=== PATIENT | male | born 1990 | race Caucasian/White ===

== ENCOUNTER 2022-04-24 11:14 | Inpatient (IN) | payer BC ==
[~2022-04-24] VITALS: Ht 175.3 cm; Wt 123.9 kg
[2022-04-24] MEDS ORDERED: K-TAB10 PO (14:29)
[2022-04-24] MEDS ORDERED: MAG-OX 400400 MG/TAB PO (14:32)
[2022-04-24] MEDS ORDERED: PROTONIX 40MG T40 MG PO (14:34)
[2022-04-24] MEDS ORDERED: SENNA-LAX8.6 MG PO (14:34)
[2022-04-24] MEDS ORDERED: CONSTULOSE 20G/30ML PO (14:35)
[2022-04-24] MEDS ORDERED: NORVASC 10MG10 MG PO (14:35)
[2022-04-24] MEDS ORDERED: ZOFRAN ODT4 MG PO (14:36)
[2022-04-24] MEDS ORDERED: ATROVENT I0.2 MG/1 M IH (14:37)
[2022-04-24] MEDS ORDERED: PULMICORT0.5 MG/2 M IH (14:38)
[2022-04-24] MEDS ORDERED: MELATIN 3 MG-11 TAB PO (14:38)
[2022-04-24] MEDS ORDERED: ROBAXIN 50500 MG/TAB PO (14:38)
[2022-04-24] MEDS ORDERED: TYLENOL 325MG325 MG PO (14:39)
[2022-04-24] MEDS ORDERED: GAS RELIEF 8080 MG PO (14:40)
[2022-04-24 16:04] VITALS: BP 127/64; PULSE 94
--- NOTE | 2022-04-25 03:25 | NUR ---
Pt has had an uneventful shift this far, resting quietly in bed with TV on. Full body assessment and medication administration completed without difficulty. Pt has had no complaints of pain this evening. Colostomy bag has been empyted intermittently this shift. Call light within reach, will continue to monitor.
[2022-04-25 05:08] VITALS: BP 135/69; PULSE 79; TEMP 97.6
[2022-04-25 07:15] LABS: MEAN CELL VOLUME 93 fl (80.0-100.0); MEAN CORPUSCULAR HGB CONC 31 g/dl (33.0-37.0); MEAN PLATELET VOLUME 11.2 fl (7.4-10.4); PLATELET COUNT 399 K/mm3 (130-400); RED BLOOD COUNT 3.12 M/mm3 (4.20-5.60); REDCELL DISTRIBUTION WIDTH-CV 13.6 % (11.5-14.5)
[2022-04-25 07:20] LABS: MEAN CORPUSCULAR HEMOGLOBIN 29 pg (27-31)
[2022-04-25 07:25] LABS: ALBUMIN 2.4 gm/dL (3.5-5.0); BILIRUBIN,TOTAL 0.3 mg/dL (0.2-1.2); CALCIUM 9.2 mg/dL (8.4-10.2); CREATININE, serum 1.38 mg/dL (0.72-1.25); MAGNESIUM 1.8 mg/dL (1.6-2.6); POTASSIUM 4.7 mmol/L (3.5-4.5); TOTAL PROTEIN 8.3 gm/dL (6.2-8.1)
[2022-04-25 10:12] LABS: BAND 4 % (0-10); EOSINOPHIL 5 % (0-4); HYPOCHROMIA 2+; LYMPHOCYTE 13 % (20.0-51.0); METAMYELOCYTE 2 % (0-0); MYELOCYTE 2 % (0-0); NEUTROPHILS 67 % (42.0-75.2); PLATELET ESTIMATE NORMAL (NORMAL)
--- NOTE | 2022-04-25 10:19 | NUR ---
NEW ADMISSION. PATIENT DOING WELL THIS MORNING. RIGHT SIDE COLOSTOMY PRESENT, DRAINING WELL, TEACHING GIVEN TO PATIENT ON HOW TO DRAIN BAG. MIDLINE INCISION WITH GAUZE DRESSING INTACT. ABDOMINAL WOUNDS FROM PRIOR SURGERIES HEALING WELL. NO S/S OF INFECTION. CONTINENT OF BLADDER, USES URINAL. PEG TUBE IN PLACE AND CLAMPED. PATIENT REFUSES FLUSHES TO TUBE AT THIS TIME. TAKES MEDS WHOLE WITHOUT ISSUE. FAIR APPETITE AT MEAL TIMES. A&O X4, PLEASANT. PARTICIPATED IN THERAPY TODAY WITHOUT ISSUE. VITALS WNL.
--- NOTE | 2022-04-25 16:21 | NUR ---
Aoc Plans Intelligence Officer Chief met with patient to complete initial intake as patient is new to [facility]. Patient reports Dr. Gal Ball is his primary care doctor and that he obtains medications from [facility]. Patient does not normally use any DME and is normally independent with ADLS. Patient reports his parents, Conrad (ph#[phone]) and Haylee (ph#[phone]) are his DPOA-HC. Patient states he is feeling worn out from therapy today. SW will continue to follow for discharge needs.
[2022-04-25 18:00] VITALS: BP 128/65; PULSE 84; TEMP 97.6
[2022-04-26 06:06] VITALS: BP 129/72; PULSE 87; TEMP 97.6
--- NOTE | 2022-04-26 07:28 | NUR ---
Shift report received from film processing shift supervisor RN. Pt. sleeping supine in bed. Call light is within his reach
--- NOTE | 2022-04-26 08:39 | NUR ---
ASSESSMENT DONE. PATIENT ALERTX4 WITH NO ISSUE WITH MEMORY. PATIENT COMPLAIN OF PAIN 5/10 ON ABDOMINAL AREA. PAIN MEDICATION WAS GIVEN ORDER. PATIENT IS 2 PERSON ASSISTANCE. pATIENT HAS A COLOSTOMY ON RIGHT SIDE OF ABDOMINA. COMPLAIN OF GAS PAIN. GAS MEDICATION WAS GIVEN ORDER. ABLE TO TAKE ALL MEDICATION WITH NO ISSUE EXCEPT THE POTASSIUM. HEPRIN SUBQ SHOT WAS GIVEN ON LEFT UPPER ARM. [facility]. PATIENT IS AWARE TO CALL IF THERE IS ANY CONCERN OR QUESTION
--- NOTE | 2022-04-26 09:39 | NUR ---
Pt off unit to work with PT/OT
[2022-04-26 11:08] LABS: PATHOLOGY DIFF REVIEW OK
--- NOTE | 2022-04-26 15:17 | NUR ---
cement storage worker met with patient to complete intake and discuss discharge plan. Patient reports that prior to being admitted to [facility], he was living at home with his Kirti ([phone]). Patient was fully independent with his ADL's and did not utilize any DME to assist with mobility. Patient reports he is now needing a walker to assist. Patient reports that he did not have any home oxygen needs, however he is currenly on 1L of [place] oxygen. PCP is Dr. Lange and he utilizes [facility] term [facility] and [facility] for detention medications. [facility] States he does have a DPOA-HC established listing his as his primary agent and his oldest son Peter Westfall as his seconday agent.
[2022-04-26 17:39] VITALS: BP 120/74; PULSE 84; TEMP 98.6
[2022-04-27 05:09] VITALS: BP 120/72; PULSE 82; TEMP 98.2
--- NOTE | 2022-04-27 06:11 | NUR ---
Pt had an uneventful shift, rested quietly for most of it. Pt had no complaints of pain. Assessment and medication completed without difficulty. All other needs met at this time, call light within reach.
[2022-04-27 07:34] LABS: MEAN CELL VOLUME 92 fl (80.0-100.0); MEAN CORPUSCULAR HGB CONC 31 g/dl (33.0-37.0); MEAN PLATELET VOLUME 11.2 fl (7.4-10.4); PLATELET COUNT 485 K/mm3 (130-400); RED BLOOD COUNT 3.46 M/mm3 (4.20-5.60); REDCELL DISTRIBUTION WIDTH-CV 13.8 % (11.5-14.5)
[2022-04-27 07:46] LABS: HEMATOCRIT 31.8 % (42.0-52.0); HEMOGLOBIN 9.8 g/dl (13.5-18.0); MEAN CORPUSCULAR HEMOGLOBIN 28 pg (27-31)
[2022-04-27 07:54] LABS: CALCIUM 9.7 mg/dL (8.4-10.2); CREATININE, serum 1.56 mg/dL (0.72-1.25); POTASSIUM 4.3 mmol/L (3.5-4.5)
--- NOTE | 2022-04-27 08:25 | NUR ---
Ivon Hospitalist PA updated on AM labs, increased output from ostomy, decreased urine output and current oral intake. No further orders at this time. Cares being provided by Renetta Sanchez RN, with supervision of the RN as preceptor.
[2022-04-27 08:39] LABS: EOSINOPHIL 2 % (0-4); LYMPHOCYTE 15 % (20.0-51.0); NEUTROPHILS 77 % (42.0-75.2)
[2022-04-27 08:40] LABS: HYPOCHROMIA 3+; PLATELET ESTIMATE INCREASED (NORMAL)
[2022-04-27 08:41] LABS: BAND 2 % (0-10); METAMYELOCYTE 1 % (0-0)
--- NOTE | 2022-04-27 09:11 | NUR ---
IV 20G ON LEFT HAND WAS PLACE IN FOR IV FLUID. PATIENT TOLERATED WELL. IV STARTED AT 805AM.STOOL CULURE WAS SENT DOWN TO LAB. SENNA TAB WAS PLACE ON HOLD DUE TO DIARRHEA
--- NOTE | 2022-04-27 11:06 | NUR ---
ASSESSMENT DONE ORDER. PATIENT IS ALERTX 4 BUT VERY TIRED AND WITHDRAW. PATIENT STATED THAT HE JUST WANT TO SLEEP ALL DAY TODAY DUE TO PT YESTERDAY. ONLY ATE ABOUT 10% OF HIS BREAKFAST BUT DRANK HIS OJ.PATIENT STARTED IV FLUID TODAY AND URINATED ABOUT 300 CC OF SHERLY TEA COLOR. PATIENT DID INFORM THAT HIS STOMACH IS SLIGHT IN MORE PAIN THAN BEFORE BUT NOT BAD THAT HE NEED PAIN MEDICATION. I ALSO SPOKE WITH ANKUSH MCDONALD ABOUT PATIENTINFORM THAT HE WILL BE GETTING ANOTHER BLOOD DRAWN THIS AFTER FOR LAB DUE TO ELEVATED LAPS THIS AM. PATIENT HAS BEEN EMPTYING ABOUT 400 OF BOWEL MOVEMENT(LIQUID) EVERY 1 HOURS SINCE MY SHIFT AT 630AM. G1 PANEL WAS SENT TO LAB ORDER
--- NOTE | 2022-04-27 13:45 | NUR ---
CHANGE DRESSING ON PATIENT ABOMINAL AREA. NOTICES THAT HIS STOMY HAS SLOUGH NOTED ON TOP RIGHT CORNER. STOMY RED AND IN GOOD SHAPE. STILL DRAINING MILTON FLUIDS. 800ML OF DM CAME OUT AT 2 PM. 230 PM PATIENT HAD ANOTHER BM OF 300ML MIL[place] COLOR OF FLUID. CHANGE STOMY DRESSING WITH WARM WATER. CLEARN WITH TOWEL. PAT DRY AND APPLY NEW WAFFER AND BAG.PATIENT CONTINUE TO HAVE ABDOMINAL PAIN EVEN THOUGH 15 MG OF PAIN MEDCATION WAS GIVEN. CALLED DR JOHNSON REGARDING A CONSUL ON PATIENT BECAUSEOF DRAINING FROM ABDOMINAL INCISION, INCREASING WBC,AND ABD PAIN, BLOATING. 415PM ANOTHER 300 ML OF MILTON FLUID (BOWEL MOVEMENT) CAME OUT. PATIENT ON THE LEFT SIDE FOR COMFORT. CALL LIGHT IN REACH. INSTRUCTED TO CALL FOR ANOTHER CONCERN OR QUESTION
[2022-04-27 13:48] VITALS: TEMP 98.1
--- NOTE | 2022-04-27 13:49 | NUR ---
Pain complaint of pain in abdominal area 7/10 ache. patient also stated that he feels funny doesn't know how to described it. Ask for the basin just incase he vomited. offer n/v medication but refused. Ask for pain medication 15mg of oxy was given as order. will follow up
--- NOTE | 2022-04-27 15:00 | NUR ---
ANKUSH Del Valle notified of dressing change to abdomen. Incisions inspected by Dr. Kinney and Ivon. Purulent drainage noted to incisions, and around PEG insertion site. Orders received to flush PEG tube daily. Wound culture of distal open area on midline incision obtained.
[2022-04-27 15:06] LABS: CALCIUM 9.4 mg/dL (8.4-10.2); CREATININE, serum 1.43 mg/dL (0.72-1.25); POTASSIUM 4.6 mmol/L (3.5-4.5)
--- NOTE | 2022-04-27 15:29 | NUR ---
ANKUSH Del Valle notified of critical labs at 1513. Orders received. Patient updated on new orders and surgical consult.
[2022-04-27 16:15] VITALS: BP 123/57; PULSE 89; TEMP 98
--- NOTE | 2022-04-27 18:35 | NUR ---
Dr Payne rounds on patient. Updated on dressing change and culture sent. No new orders at this time.
--- NOTE | 2022-04-27 19:14 | NUR ---
colostomy bag that I place on 3 hours ago came off. I redid it with extra bill, educated the patient that not to mess with it. He ask if we can come every 1 hours to help him dump his BM.I pass it on to the next nurse. I also showed her how to change the bag. Patient stated that he feels slightly better but still feel that he need to release air. I dump out colostomy while I was there in room at 7pm with night nurse. 150 cc of mead BM came out of the colostomy bag
--- NOTE | 2022-04-27 21:14 | NUR ---
ASSESSMENT COMPLETE. PT. LYING IN BED. A&O. NO COMPLAINTS OF PAIN. COLOSTOMY BAG TO RLQ INTACT AND NOT LEAKING. PEG TUBE IN PLACE. INT TO LEFT HAND. CALL LIGHT IN REACH. NO FURTHER NEEDS AT THIS TIME.
[2022-04-28 05:17] VITALS: BP 125/70; PULSE 82; TEMP 97.7
[2022-04-28 07:06] LABS: MEAN CELL VOLUME 91 fl (80.0-100.0); MEAN CORPUSCULAR HGB CONC 32 g/dl (33.0-37.0); MEAN PLATELET VOLUME 11.4 fl (7.4-10.4); PLATELET COUNT 539 K/mm3 (130-400); REDCELL DISTRIBUTION WIDTH-CV 13.9 % (11.5-14.5)
[2022-04-28 07:17] LABS: HEMOGLOBIN 9.8 g/dl (13.5-18.0); MEAN CORPUSCULAR HEMOGLOBIN 29 pg (27-31)
[2022-04-28 07:18] LABS: CALCIUM 9.7 mg/dL (8.4-10.2); CREATININE, serum 1.77 mg/dL (0.72-1.25); POTASSIUM 4.2 mmol/L (3.5-4.5)
[2022-04-28 08:34] LABS: BAND 10 % (0-10); LYMPHOCYTE 15 % (20.0-51.0); METAMYELOCYTE 7 % (0-0); MYELOCYTE 1 % (0-0); NEUTROPHILS 63 % (42.0-75.2); PLATELET ESTIMATE INCREASED (NORMAL)
--- NOTE | 2022-04-28 11:01 | NUR ---
PATIENT DOING WELL THIS SHIFT. VITALS WNL, AFEBRILE. NOTED INCREASE IN WBC REPORTED TO HOSPITALIST. ORDERS RECIEVED. PATIENT DOES NOT HAVE ANY SIGNS OF INFECTION OR SEPSIS AT THIS TIME. ONLY COMPLAINT IS FATIGUE FROM THERAPY SESSIONS. PARTICIPATED WITH PT/OT WITHOUT ISSUE. COMPLAINS OF MILD CRAMPING IN ABDOMEN THAT HE SAYS IS INTERMITTENT. MODERATE TO HIGH OUTPUT FROM COLOSTOMY, HAS TO BE DRAINED ABOUT EVERY HOUR. MOSTLY LIQUID IN CONSISTENCY. 500ML FREE WATER RESTRICTION FOLLOWED. A&O X4 PLEASANT. CONT OF BLADDER. ABDOMINAL INCISIONS CLEAN DRY AND INTACT.
--- NOTE | 2022-04-28 13:53 | NUR ---
Materials Development Engineer checked in with patient who is on a medical hold at this time. Patient had no questions or concerns at this time and was going to try to eat his lunch soon.
--- NOTE | 2022-04-28 20:38 | NUR ---
Report received on pt from day shift nurse. Assessment completed without difficulty. Colotostomy bag emptied by this nurse at 1915. Later in the shift at approximately 2030 RT went into the pts room, RT notified this nurse that the pt was requesting that his colostomy bag be emptied again. RT stated that the pt told her that "my nurse hasn't even been in the room since she got here". This nurse entered the room along with a PCT and assisted in emptying his colostomy bag. This nurse inquired about him saying that I had not entered the room; this was asked due to the pts history of alcohol abuse and the fear that there were neurological issues arising. Pt stated that "no, that's not what I meant, she (RT) misunderstood what I meant.". This nurse deteremined that pt was A&Ox4 and that secondary assessment was normal. All other needs met at this time, will continue to monitor.
[2022-04-29 05:23] VITALS: BP 123/66; PULSE 99; TEMP 97.3
--- NOTE | 2022-04-29 06:17 | NUR ---
Pt has been resting in for a majority of the shift. Pt has had no complaints of pain. Assessment and medication administration completed without difficuly. This nurse educated the pt on the importance of being able to manage and empty his own colostomy bag. Pt became mildly defensive in regards to the subject matter. All other needs met at this time, call light within reach.
[2022-04-29 06:51] LABS: MEAN CELL VOLUME 90 fl (80.0-100.0); MEAN CORPUSCULAR HGB CONC 33 g/dl (33.0-37.0); MEAN PLATELET VOLUME 11.1 fl (7.4-10.4); PLATELET COUNT 470 K/mm3 (130-400); RED BLOOD COUNT 3.01 M/mm3 (4.20-5.60); REDCELL DISTRIBUTION WIDTH-CV 13.9 % (11.5-14.5)
[2022-04-29 06:54] LABS: HEMOGLOBIN 8.8 g/dl (13.5-18.0); MEAN CORPUSCULAR HEMOGLOBIN 29 pg (27-31)
[2022-04-29 07:18] LABS: ALBUMIN 2.5 gm/dL (3.5-5.0); BILIRUBIN,TOTAL 0.3 mg/dL (0.2-1.2); CALCIUM 9.3 mg/dL (8.4-10.2); CREATININE, serum 2.68 mg/dL (0.72-1.25); POTASSIUM 3.5 mmol/L (3.5-4.5); TOTAL PROTEIN 7.9 gm/dL (6.2-8.1)
--- NOTE | 2022-04-29 07:48 | NUR ---
REPORTED CRITICAL LAB TO DR. MERCADO
[2022-04-29 08:26] LABS: BAND 15 % (0-10); EOSINOPHIL 8 % (0-4); LYMPHOCYTE 7 % (20.0-51.0); METAMYELOCYTE 4 % (0-0); MYELOCYTE 2 % (0-0); NEUTROPHILS 58 % (42.0-75.2)
[2022-04-29 08:27] LABS: PLATELET ESTIMATE NORMAL (NORMAL)
--- NOTE | 2022-04-29 10:37 | NUR ---
PATIENT ALERT AND ORIENTED X3. VSS. PATIENT DENIES PAIN. DRESSING ON MIDLINE CHANGED. OSTOMY APPLIANCE EMPTIED WITH 175ML OUT. IV TO LEFT HAND FLUSHES WELL WITH LR RUNNING AT 75ML/HOUR. PEG TUBE FLUSHED. ASSESSMENT PERFORMED. AM MEDS ADMINISTERED. PATIENT IN BED WITH CALL LIGHT NEAR.
[2022-04-29 16:58] VITALS: BP 117/54; PULSE 77; TEMP 98.1
[2022-04-30 05:00] VITALS: BP 132/66; BP 137/49; PULSE 68; PULSE 88; TEMP 97.8; TEMP 98.3
--- NOTE | 2022-04-30 08:52 | NUR ---
PATIENT WENT FOR HIS PROCEDURE FOR EGD. PER NURSE WILL BE ABOUT 30 MIN. PATIENT COLOSTOMY BAG WAS CHANGE BEFORE THE PROCEDURE.
[2022-04-30 08:56] LABS: MEAN CELL VOLUME 89 fl (80.0-100.0); MEAN CORPUSCULAR HGB CONC 32 g/dl (33.0-37.0); MEAN PLATELET VOLUME 11.3 fl (7.4-10.4); PLATELET COUNT 385 K/mm3 (130-400); RED BLOOD COUNT 3.09 M/mm3 (4.20-5.60); REDCELL DISTRIBUTION WIDTH-CV 14.1 % (11.5-14.5)
[2022-04-30 08:57] LABS: HEMATOCRIT 27.4 % (42.0-52.0); HEMOGLOBIN 8.8 g/dl (13.5-18.0); MEAN CORPUSCULAR HEMOGLOBIN 28 pg (27-31)
--- NOTE | 2022-04-30 09:30 | NUR ---
RECEIVED A PHONE CALL FROM NURSE AT [facility]. SHE STATED THAT THEY DID 3 BIOPSY AND PATIETN DID FINE. ALERT X4. BLOODPRESSURE RANGING FROM 130-140\60-70. HEART RATE 70ISH. THERE IS SMALL AMOUNT OF CANDITISIS NOTED. DR MERCADO WAS MADE AWARE. PATIENT WILL BE TRANFER BACK TO HIS ROOM SHORTLY
[2022-04-30 09:45] VITALS: BP 132/59; PULSE 76; TEMP 97.9
[2022-04-30 10:10] LABS: ALBUMIN 2.2 gm/dL (3.5-5.0); BILIRUBIN,TOTAL 0.3 mg/dL (0.2-1.2); CALCIUM 8.4 mg/dL (8.4-10.2); CREATININE, serum 2.26 mg/dL (0.72-1.25); POTASSIUM 3.3 mmol/L (3.5-4.5); TOTAL PROTEIN 6.9 gm/dL (6.2-8.1)
--- NOTE | 2022-04-30 10:21 | NUR ---
ASSESSMENT DONE ORDER. PATIENT ALERTX4. IN BED MOST OF THE DAY EXCEPT FOR PT/OT. PAIN HAS BEEN GOOD. STARTED ON ZOSYN MEDICATION. PATIENT WILL HAVE A EDG PROCEDURE TODAY AT 9AM. COLOSTOMY BAG WAS CHANGE BY NURSE. APPETITE HAS BEEN POOR TO FAIR. EDUCATED PATIENT TO REPOSTION EVERY 2 -3 HOURS
[2022-04-30 11:48] LABS: EOSINOPHIL 10 % (0-4); LYMPHOCYTE 15 % (20.0-51.0); NEUTROPHILS 68 % (42.0-75.2)
[2022-04-30 11:49] LABS: HYPOCHROMIA 1+; PLATELET ESTIMATE NORMAL (NORMAL)
--- NOTE | 2022-04-30 15:26 | NUR ---
Gymnastics Coach met with patient and provided copy of team conference notes. SW advised discharge date has not been set at this time and patient stated he figured that would be the case. Patient advised today has been better and his parents visited him today. Patient stated he would share the team conference notes with his mom, who would enjoy reading the updates.
[2022-04-30 17:04] VITALS: BP 132/58; PULSE 78; TEMP 98.1
--- NOTE | 2022-04-30 20:46 | NUR ---
PT RESTING IN BED. NO DISTRESS. EMPTIED COLOSTOMY APPROX 300CC YELLOW THICK STOOL. CLEANED PEG TUBE SITE AND PLACED NEW DRSG. PAIN CONTROLLED AT THIS TIME. LR AT 75CC/HR TO LT HAND. SITE CLEAR. PT DENIES OTHER NEEDS AT THIS TIME. CALL LIGHT IN REACH. BED ALARM SET.
[2022-05-01] VITALS (10 sets, daily range): BP systolic 122–153; BP diastolic 56–80; PULSE 70–78; TEMP 97.9–98.7
--- NOTE | 2022-05-01 02:03 | NUR ---
PULVERIZER OPERATOR EMPTIED COLOSTOMY BAG. SEE I&O.
[2022-05-01 07:47] LABS: MEAN CELL VOLUME 88 fl (80.0-100.0); MEAN CORPUSCULAR HGB CONC 33 g/dl (33.0-37.0); MEAN PLATELET VOLUME 10.9 fl (7.4-10.4); PLATELET COUNT 372 K/mm3 (130-400); RED BLOOD COUNT 2.33 M/mm3 (4.20-5.60); REDCELL DISTRIBUTION WIDTH-CV 14.2 % (11.5-14.5)
[2022-05-01 07:53] LABS: HEMATOCRIT 20.4 % (42.0-52.0); HEMOGLOBIN 6.7 g/dl (13.5-18.0); MEAN CORPUSCULAR HEMOGLOBIN 29 pg (27-31)
[2022-05-01 07:57] LABS: CALCIUM 8.3 mg/dL (8.4-10.2); CREATININE, serum 1.58 mg/dL (0.72-1.25); MAGNESIUM 1.8 mg/dL (1.6-2.6)
--- NOTE | 2022-05-01 08:07 | NUR ---
CALLED CRITICAL LABS TO DR. MERCADO
[2022-05-01 08:44] LABS: BAND 10 % (0-10); EOSINOPHIL 6 % (0-4); METAMYELOCYTE 6 % (0-0); NEUTROPHILS 55 % (42.0-75.2)
[2022-05-01 08:45] LABS: PLATELET ESTIMATE NORMAL (NORMAL)
[2022-05-01 08:46] LABS: LYMPHOCYTE 14 % (20.0-51.0)
[2022-05-01 12:14] LABS: HEMATOCRIT 20.5 % (42.0-52.0); HEMOGLOBIN 6.5 g/dl (13.5-18.0)
--- NOTE | 2022-05-01 18:19 | NUR ---
PATIENT ALERT AND ORIENTED X3. VSS. PATIENT REPORTS PAIN, REQUESTS PAIN MEDICATION. ASSESSMENT PERFORMED. AM MEDS ADMINISTERED. PEG TUBE FLUSHED. COLOSTOMY WITH MINIMAL OUTPUT IN AM. DRESSING CHANGED ON MIDLINE INCISION. LR RUNNING AT 75. CALL LIGHT WITHIN REACH.
--- NOTE | 2022-05-01 19:14 | NUR ---
BLOOD INFUSING W/O DIFFICULTY. NO REACTION.
--- NOTE | 2022-05-01 20:11 | NUR ---
TX GIVEN VIA MOUTHPIECE, TOLERATED WELL.
--- NOTE | 2022-05-01 20:35 | NUR ---
pt rajwinder blood transfusion well.
--- NOTE | 2022-05-01 20:44 | NUR ---
BLOOD TRANSFUSION ALMOST COMPLETE.
--- NOTE | 2022-05-01 20:55 | NUR ---
BLOOD COMPLETE. CINDER MAN REACTIONS
[2022-05-01 22:18] LABS: HEMATOCRIT 25.9 % (42.0-52.0); HEMOGLOBIN 8.4 g/dl (13.5-18.0)
--- NOTE | 2022-05-01 22:36 | NUR ---
NOTIFIED LAURA DALY OF [facility] 8.4 NOW.
[2022-05-02 05:37] VITALS: BP 130/61; PULSE 77; TEMP 98.4
--- NOTE | 2022-05-02 08:14 | NUR ---
ASSESSMENT DONE ORDER. PATIENT COMPLAIN OF MUSCLE SPASM 6/10 ON BACK AREA. NEW ORDER FOR POTASSIUM (LIQUID) WAS GIVEN ORDER. NO ISSUE WITH TAKING MEDICATION. lUNG CLEAR IN ALL LOBES. BOWEL SOUND HYPOACTIVE TODAY EVEN THOUGH HIS COLOSTOMY HAS INCREASE GAS. PATIENT IS ALERT. IV SITE INTACT AND NO REDNESS NOTED.
--- NOTE | 2022-05-02 14:40 | NUR ---
Card Hand met with patient to check in before the weekend. Patient is sitting up in the recliner and advised today has been a good day. Patient does not have any questions or concerns at this time.
[2022-05-02 17:26] VITALS: BP 134/57; PULSE 72; TEMP 98.1
--- NOTE | 2022-05-02 19:37 | NUR ---
RECEIVED CHANGE OF SHIFT REPORT FROM DAY SHIFT RN.
--- NOTE | 2022-05-03 00:45 | NUR ---
PATIENT DENIES ANY NEEDS AT THIS TIME, VOIDED AND EMPTIED OUT COLOSTOMY BAG WITH NO REPORTED/OBSERVED REPORTED PROBLEMS OR CONCERNS. EXIT ALARM ON WHEN IN BED WITH CALL LIGHT WITHIN REACH.
--- NOTE | 2022-05-03 04:38 | NUR ---
PATIENT DENIES ANY NEEDS AT THIS TIME. EXIT ALARM ON WHILE IN BED, CALL LIGHT WITHIN REACH.
[2022-05-03 05:57] LABS: MEAN CELL VOLUME 88 fl (80.0-100.0); MEAN CORPUSCULAR HGB CONC 33 g/dl (33.0-37.0); MEAN PLATELET VOLUME 9.8 fl (7.4-10.4); PLATELET COUNT 295 K/mm3 (130-400); RED BLOOD COUNT 2.63 M/mm3 (4.20-5.60); REDCELL DISTRIBUTION WIDTH-CV 14.6 % (11.5-14.5)
[2022-05-03 05:58] VITALS: BP 108/58; PULSE 76; TEMP 98.2
[2022-05-03 06:02] LABS: HEMATOCRIT 23.1 % (42.0-52.0); HEMOGLOBIN 7.5 g/dl (13.5-18.0); MEAN CORPUSCULAR HEMOGLOBIN 29 pg (27-31)
[2022-05-03 06:17] LABS: CALCIUM 8.3 mg/dL (8.4-10.2); CREATININE, serum 0.97 mg/dL (0.72-1.25)
[2022-05-03 06:28] LABS: POTASSIUM 2.6 mmol/L (3.5-4.5)
--- NOTE | 2022-05-03 06:28 | NUR ---
RECEIVED CRIT LAB VALUE OF 2.6 K+, DOWN FROM 3.0 PREVIOUSLY.
[2022-05-03 06:45] LABS: BAND 6 % (0-10); EOSINOPHIL 2 % (0-4); LYMPHOCYTE 23 % (20.0-51.0); METAMYELOCYTE 2 % (0-0); MYELOCYTE 2 % (0-0); NEUTROPHILS 62 % (42.0-75.2); PLATELET ESTIMATE NORMAL (NORMAL)
[2022-05-03 06:46] LABS: ANISOCYTOSIS 1+; HYPOCHROMIA 1+
--- NOTE | 2022-05-03 07:06 | NUR ---
CHANGE OF SHIFT REPORT GIVEN TO DAY SHIFT RNCAT.
--- NOTE | 2022-05-03 07:12 | NUR ---
Shift report received from night stocker RN. Pt. sleeping supine in bed. Call light is within his reach
--- NOTE | 2022-05-03 10:57 | NUR ---
Pt back in room after Group Therapy this morning. He was assisted from wheelchair to bed. He denies pain or discomfort. Lotion applied to feet at his request - scaly skin, plaques noted on soles of both feet. Denies additional needs. Call light is within his reach
--- NOTE | 2022-05-03 16:18 | NUR ---
Pt up to ambulate in hallway with nurse using fww and gait belt. Pt. ambulated approx 20 ft. No pain/discomfort. Pt. assisted to bed after ambulating
[2022-05-03 17:48] VITALS: BP 149/79; PULSE 87
[2022-05-03 18:14] VITALS: TEMP 98.3
--- NOTE | 2022-05-03 19:03 | NUR ---
RECEIVED CHANGE OF SHIFT REPORT FROM DAY SHIFT RN. PATIENT WAS UP IN CHAIR DURING REPORT, DENIED ANY C/O OF DISCOMFORT AT TIME OF REPORT, REPORTED FEELING TIRED. EXIT ALARM ON WHEN UP IN CHAIR, CALL LIGHT WITHIN REACH.
--- NOTE | 2022-05-04 01:52 | NUR ---
PATIENT DENIES ANY NEEDS OR CONCERNS AT THIS TIME. TOLERATING ORAL POTASSIUM WITH NO PROBLEMS. EXIT ALARM ON WHILE IN BED, CALL LIGHT WITHIN REACH.
[2022-05-04 05:29] VITALS: BP 108/41; PULSE 83; TEMP 98.1
--- NOTE | 2022-05-04 07:25 | NUR ---
CHANGE OF SHIFT REPORT GIVEN TO DAY SHIFT RNARPITA.
[2022-05-04 11:15] VITALS: BP 126/68
--- NOTE | 2022-05-04 16:46 | NUR ---
PT SITTING UP IN CHAIR, HAS JUST RETURNED TO ROOM FROM AMBULATING IN HALLWAY WITH STAFF. PT TOLERATES WELL WITH SBA ET WALKER. OSTOMY APPLIANCE HAS BEEN CHANGED, POWDER ET BARRIER FILM APPLIED. PT DOES HAVE AREAS OF SKIN BREAKDOWN AROUND EDGES OF DRESSING ET AROUND STOMA. STOMA IS BEEFY RED, STOOL HAS BEEN LIQUID/LOOSE YELLOW/GREEN, FLATUS PRESENT. AIRSTRIP DRESSING OVER MIDLINE INCISION CHANGED. PEG TUBE FLUSHED WITH 30 ML STERILE WATER. PT DENIES NEEDS. RESPIRATIONS HAVE BEEN UNLABORED ON ROOM AIR. CALL LIGHT WITHIN REACH.
[2022-05-04 17:06] VITALS: BP 117/63; PULSE 93; TEMP 98.7
--- NOTE | 2022-05-04 18:56 | NUR ---
RECEIVED CHANGE OF SHIFT REPORT FROM DAY SHIFT RN.
--- NOTE | 2022-05-04 21:00 | NUR ---
PATIENT CALLED OUT TO NURSES STATION REPORTING THAT HIS COLOSTOMY BACK "IS LEAKING". OBSERVED R LOWER CORNER OF STOMA APPLIANCE IS UP AND OBSERVED SMALL AMOUNT OF STOOL COMING FROM UNADHERED CORNER OF STOMA APPLIANCE. APPLANCE REMOVED. OBSERVED BOTTOM LEFT EDGE OF STOMA IS EXCORCIATED AND APEX OF STOMA HAS SMALL SIZE AMOUNT OF SLOUGH OBSERVED. PATIENT REPORTS DISCOMFORT WITH CLEANING OF SKIN AROUND STOMA. STOMA POWDER APPLIED WITH SKIN PREP APPLIED PER HOSP P/P FOR COLOSTOMY CARE, STOMA OPENING CUT TO SIZE OF BOTH BASE AND 2ND LAYER OF STOMA WAFER, THEN APPLIED FLAT BASE LAYER OF STOMA WAFER THEN COLOSTOMY STOMA WAFER WITH ATTACHMENT RING PLACED ON TOP OF BASE LAYER, PER PATIENT REQUEST. PATIENT REQUESTED THICK STOMA WAFER SET UP FOR BETTER ADHESION OF COLOSTOMY APPLIANCE. EDGES OF STOMA.
[2022-05-05 05:30] VITALS: BP 127/63; PULSE 97; TEMP 98.3
[2022-05-05 06:56] LABS: MEAN CELL VOLUME 91 fl (80.0-100.0); MEAN CORPUSCULAR HGB CONC 32 g/dl (33.0-37.0); MEAN PLATELET VOLUME 10.1 fl (7.4-10.4); PLATELET COUNT 238 K/mm3 (130-400); RED BLOOD COUNT 2.69 M/mm3 (4.20-5.60); REDCELL DISTRIBUTION WIDTH-CV 14.6 % (11.5-14.5)
[2022-05-05 07:05] LABS: HEMATOCRIT 24.4 % (42.0-52.0); HEMOGLOBIN 7.7 g/dl (13.5-18.0); MEAN CORPUSCULAR HEMOGLOBIN 29 pg (27-31)
--- NOTE | 2022-05-05 07:10 | NUR ---
CHANGE OF SHIFT REPORT GIVEN TO DAY SHIFT RNPRATIBHA.
[2022-05-05 07:26] LABS: BILIRUBIN,TOTAL 0.4 mg/dL (0.2-1.2); CALCIUM 8.1 mg/dL (8.4-10.2); CREATININE, serum 0.73 mg/dL (0.72-1.25); MAGNESIUM 1.1 mg/dL (1.6-2.6); POTASSIUM 3.7 mmol/L (3.5-4.5); TOTAL PROTEIN 6.5 gm/dL (6.2-8.1)
[2022-05-05 08:24] LABS: BAND 2 % (0-10); BASOPHIL 1 % (0-2); EOSINOPHIL 4 % (0-4); LYMPHOCYTE 9 % (20.0-51.0); NEUTROPHILS 80 % (42.0-75.2)
[2022-05-05 08:25] LABS: HYPOCHROMIA 2+; PLATELET ESTIMATE NORMAL (NORMAL)
[2022-05-05 16:39] VITALS: BP 133/61; PULSE 95; TEMP 99
[2022-05-06 05:28] VITALS: BP 135/72; PULSE 65; PULSE 86; TEMP 98.7
--- NOTE | 2022-05-06 07:28 | NUR ---
BEDSIDE REPORT DONE. PATIENT IN BED GETTING HIS BREATHING TREATMENT. NO SIGN OF PAIN NOTED. COLOSTOMY BAG DUMP SEVERAL TIME A NIGH WITH OUT ANY LEAKAGE. WILL CONTINUE TO MONITOR
--- NOTE | 2022-05-06 09:18 | NUR ---
ASSESSMENT DONE. PATIENT UP WITH MINIMAL FIRE CONTROLMAN BUT WITH WALKER. PATIENT ALERTX4. PAIN WAS A 4/10 AND REQUESTED PAIN MEDICATION. PATIENT STATED HIS BACK HURT. LUNG CLEAR IN ALL LOBES. BOWEL SOUNDA SLIGHTLY ACTIVE, STOMY CLEAN AND INTANT. CONTINUE TO HAVE INCREASE GAS . SKIN CHECK DONE. PINKISH ON COCCXY AREA. PATIENT ABLE TO VOID CLEAR YELLOW URINE. CALL LIGHTIN REACH.
--- NOTE | 2022-05-06 14:55 | NUR ---
SW met with the patient to follow up and introduce oneself. The patient was resting and states he is doing okay. He states that he would like to file for disability. FER consulted Rick financial counselor.
[2022-05-06 17:18] VITALS: BP 138/70; PULSE 94; TEMP 98
--- NOTE | 2022-05-06 19:00 | NUR ---
RECEIVED CHANGE OF SHIFT REPORT FROM DAY SHIFT RN.
[2022-05-07 05:10] VITALS: BP 118/59; PULSE 96; TEMP 98.5
[2022-05-07 06:44] LABS: HEMATOCRIT 24.2 % (42.0-52.0); HEMOGLOBIN 7.6 g/dl (13.5-18.0); MEAN CELL VOLUME 90 fl (80.0-100.0); MEAN CORPUSCULAR HEMOGLOBIN 28 pg (27-31); MEAN CORPUSCULAR HGB CONC 31 g/dl (33.0-37.0); MEAN PLATELET VOLUME 9.9 fl (7.4-10.4); PLATELET COUNT 235 K/mm3 (130-400); REDCELL DISTRIBUTION WIDTH-CV 14.1 % (11.5-14.5)
--- NOTE | 2022-05-07 07:08 | NUR ---
CHANGE OF SHIFT REPORT GIVEN TODAY SHIFT RNs, NIKHIL. EXIT ALARM ON WHEN IN BED WITH CALL LIGHT WITHIN REACH DURING THE NIGHT.
[2022-05-07 07:15] LABS: ALBUMIN 1.9 gm/dL (3.5-5.0); BILIRUBIN,TOTAL 0.3 mg/dL (0.2-1.2); CALCIUM 7.8 mg/dL (8.4-10.2); CREATININE, serum 0.69 mg/dL (0.72-1.25); POTASSIUM 3.7 mmol/L (3.5-4.5); TOTAL PROTEIN 6.3 gm/dL (6.2-8.1)
[2022-05-07 07:47] LABS: BAND 3 % (0-10); EOSINOPHIL 7 % (0-4); LYMPHOCYTE 13 % (20.0-51.0); METAMYELOCYTE 1 % (0-0); NEUTROPHILS 73 % (42.0-75.2)
[2022-05-07 07:48] LABS: PLATELET ESTIMATE NORMAL (NORMAL)
--- NOTE | 2022-05-07 08:33 | NUR ---
BEDSIDE REPORT WAS GIVEN ORDER. PATIENT HAD A GOOD NIGHT WITH OUT ANY PAIN. CALL LIGHT IN REACH.
--- NOTE | 2022-05-07 08:37 | NUR ---
ASSESSMENT DONE. PATIENT ALERT X3 WITH NO MEMORYISSUE. LUNG SOUND CLEAR IN ALL LOBES. BOWEL SOUND ACTIVE IN ALL 4 QUADS. COLOSTOMY BAG WAS CHANGE,WAFFER STILL INTACT WITH NO ISSUE. PATIENT ABLE TO CARE FOR HIM SELF WITH ASSISTANCE. APPETITE GOOD 100% IN MEALS. NO PAIN NOTED
--- NOTE | 2022-05-07 08:59 | NUR ---
SPOKE WITH DR MERCADO REGARDIND POTASSIUM AND WBC. INFORM TO D/C IV SITE AND D/C POTASSIUM LAB TOMORROW.
--- NOTE | 2022-05-07 11:04 | NUR ---
Saline lock dc'd from Left AC as ordered
--- NOTE | 2022-05-07 14:06 | NUR ---
FER met with the patient to present and review the IPR Team Conference Note. The team has set a tentative discharge for next Thursday, 05/16, with home health PT/OT/SN. The patient will need ostomy supplies. They also recommend a FWW and would like to get a patient/family meeting set up. The patient is in agreement to the discharge. FER provided him with Medicare.[employer]'s list of home health agencies that serve [place]. There is three agencies on the list. FER checked with [facility] and [facility] and they both report they service [place] and can assist with the ostomy. The patient would like to look over the list with his mother. He states that his mother is going to be coming up to the hospital tomorrow or Thursday and those days should work for the meeting. He is also agreeable with getting the FWW from [facility]. FER contacted the patient's mother, Haylee, and updated her on the above. Haylee would like to schedule the patient/family meeting for next Thursday at 1300. She states that she will be down to see the patient tomorrow, but would just like to meet with SW tomorrow. FER updated IPR Director. SW to follow up with the patient and his mother tomorrow. [facility]: ph#[phone] fax#[phone] [facility] [place] office: #[phone]
[2022-05-07 17:26] VITALS: BP 135/58; PULSE 96; TEMP 98.7
--- NOTE | 2022-05-07 19:21 | NUR ---
RECEVIED CHANGE OF SHIFT REPORT FROM DAY SHIFT RN.
--- NOTE | 2022-05-07 19:43 | NUR ---
ATROVENT AND BUDESONIDE COMPLETED. PT STATES HE HAS HAD A PRODUCTIVE COUGH BUT THAT THE MUCUS LOOKED REGULAR AND IT WAS A LITTLE AMOUNT. PT SITTING UP IN BED WATCHING TV WHILE PERFORMING TREATMENTS. TOLERATED WELL. NO DISTRESS OR CONCERNS VOICED. CALL LIGHT WITHIN REACH. RAILS UP X2. CONTINUE WITH CURRENT TX PLAN.
--- NOTE | 2022-05-08 | NUR ---
PATIENT SLEEPING, EXIT ALARM ON WHILE IN BED. DOES NOT WAKE WHEN NURSING STAFF ENTER ROOM ON ROUNDS. BREATHING NONLABORED/EVEN. CALL LIGHT WITHIN REACH.
--- NOTE | 2022-05-08 00:26 | NUR ---
PATIENT SLEEPING, DOES NOT WHEN ROOM ENTERED BY NURSING ON ROUNDS. BREATHING NONLABORED AND EVEN. CPAP ON AND FUNCTIONING. EXIT ALARM ON WHILE IN BED, CALL LIGHT WITHIN REACH.
--- NOTE | 2022-05-08 02:30 | NUR ---
PATIENT REPORTS 2 OF HIS FAMILY MEMBERS WILL BE COMING LATER THIS MORNING TO PRACTICE/FAMILY EDUCATION OF COLOSTOMY CARE/CHANGING OF APPLIANCE TODAY. DID NOT WANT TO CHANGE APPLIANCE YET AT THIS TIME AFTER OBSERVING TO LEFT LOWER CORNER OF COLOSTOMY STOMA PHALANGE WAFER WITH SOME STAINING WHEN APPLIANCE BAG WAS EMPTYIED.
[2022-05-08 05:51] VITALS: BP 123/59; PULSE 89; TEMP 98.6
--- NOTE | 2022-05-08 07:23 | NUR ---
CHANGE OF SHIFT REPORT GIVEN TO DAY SHIFT SIERRA BOOGIE.
--- NOTE | 2022-05-08 08:45 | NUR ---
PT RESTING IN BED. MORNING MEDICATIONS GIVEN. SHIFT ASSESSMENT COMPLETED. PEG TUBE FLUSHES WITH 14ML OF STERILE WATER. COLOSTOMY BAG INTACT. ABD INCISION DRESSING C/D/I. PT REPORTS MINIMAL ABD PAIN AT THIS TIME, REQUESTING PRN MEDICATION PRIOR TO PHYSICAL THERAPY. DENIES ANY OTHER NEEDS AT THIS TIME. WILL CONTINUE TO MONITOR.
--- NOTE | 2022-05-08 13:16 | NUR ---
COMPLETE COLOSTOMY DRESSING SITE CHANGE DONE AT THIS TIME. FAMILY AT [facility], EDUCATED ON DRESSING/BAG CHANGES AT HOME.
--- NOTE | 2022-05-08 15:48 | NUR ---
The patient's parents arrived to the hospital. FER met with the patient and his parents and reviewed the discharge plan. The patient's mother would like to try [facility]. His father inquired about applying for disability. FER informed them how this FER consulted Financial Counseling for the Medicaid/disability application. FER followed up with Rick with financial counseling. Rick reports that she will meet with the patient. FER contacted and faxed a referral to Yumi at [facility]. Awaiting screen.
[2022-05-08 17:17] VITALS: BP 146/68; PULSE 103; TEMP 99.2
[2022-05-09 05:36] VITALS: BP 121/59; PULSE 90; TEMP 99
--- NOTE | 2022-05-09 06:01 | NUR ---
no c/o pain or discomfort this shift, calls to have urinal emptied and to assist with emptying colostomy bag, dressings to abd CDI.
[2022-05-09 06:18] LABS: MEAN CELL VOLUME 88 fl (80.0-100.0); MEAN CORPUSCULAR HGB CONC 32 g/dl (33.0-37.0); MEAN PLATELET VOLUME 10.1 fl (7.4-10.4); PLATELET COUNT 256 K/mm3 (130-400); RED BLOOD COUNT 2.54 M/mm3 (4.20-5.60); REDCELL DISTRIBUTION WIDTH-CV 13.8 % (11.5-14.5)
[2022-05-09 06:27] LABS: HEMOGLOBIN 7.1 g/dl (13.5-18.0); MEAN CORPUSCULAR HEMOGLOBIN 28 pg (27-31)
[2022-05-09 06:28] LABS: HEMATOCRIT 22.4 % (42.0-52.0)
[2022-05-09 06:35] LABS: CALCIUM 7.5 mg/dL (8.4-10.2); CREATININE, serum 0.7 mg/dL (0.72-1.25); POTASSIUM 3.7 mmol/L (3.5-4.5)
--- NOTE | 2022-05-09 06:49 | NUR ---
BEDSIDE REPORT DONE ORDER. PATIENT RESTING IN BED WITH CALL LIGHT IN REACH.
[2022-05-09 07:35] LABS: BAND 11 % (0-10); EOSINOPHIL 1 % (0-4); LYMPHOCYTE 15 % (20.0-51.0); METAMYELOCYTE 1 % (0-0); NEUTROPHILS 68 % (42.0-75.2); PLATELET ESTIMATE NORMAL (NORMAL)
[2022-05-09 07:36] LABS: HYPOCHROMIA 2+
--- NOTE | 2022-05-09 10:35 | NUR ---
ASSESSMENT DONE ORDER. ALERT AND ORIENT X 3 WITH NO MEMORY ISSUE PATIENT LUNG CLEAR IN ALL LOBES. BOWEL SOUND ACTIVE IN ALL QUAD, PATIENT ABLE TO GET UP WITH NO ASSISTANCE BUT STILL USE WALKER FOR STABILITY. PATIENT NEED HELP GETTING HIS SHORTS ON WHEN STANDING. ABLE TO USE THE BATHROOM WITH OUT ANT HELP. COLOSTOMY BAG WAS CHANGE. PED TUBE WAS FLUSH. INCISION DRESSING WAS CHANGING.
--- NOTE | 2022-05-09 15:42 | NUR ---
FER contacted Yumi at [facility] to follow up on referral. Yumi reports they are having difficulties with their fax machine and she asked that we email the referral to her: [email or web address]. FER faxed the referral to Yumi.
--- NOTE | 2022-05-09 16:32 | NUR ---
COLSTOMY BAG WAS CHANGE TODAY DUE TO IT WAS LEAKING WHEN PATIENT GOT UP IN THE AM TIME. NOTICES REDNESS ON RIGHT SIDE(BOTTOM) EDUCATED PATIENT THAT POWDER NEED TO BE ONLY ON IRRIATED AREA ONLY AND NOT ON GOOD SKIN FOR NOW. EXPLAIN NOT TO HAVE TO MUCH POWDER SINCE IT MIGHT NOT STICK MUCH. PATIENT UNDERSTOOD. PATIENT HAD OUTSIDE LUNCH TODAY AND ATE ALL HIS FOOD. PATIENT IS AWARE THAT HE WILL BE LEAVING NEXT WEEK AND NEED SLIGHTLY MORE EDUCATED ON COLOSTOMY BAG
[2022-05-09 16:39] VITALS: BP 141/59; PULSE 91; TEMP 98.5
--- NOTE | 2022-05-09 20:09 | NUR ---
TX GIVEN VIA MOUTHPIECE, TOLERATED WELL. PT ENCOURAGED TO TAKE DEEP BREATHS THROUGHOUT THE DAY.
--- NOTE | 2022-05-09 20:58 | NUR ---
PT SITTING IN RECLINER. PT REPORTED ATE TOO MUCH AT DINNER TIME. TOOK GAS PILL EARLIER. COLOSTOMY EMPTYING STOOL AND GAS. PT ABLE TO MANAGE IT. STAFF EMPTIES CONTENT INTO STOOL. CALL LIGHT IN REACH.
[2022-05-10 05:38] VITALS: BP 145/58; PULSE 85; TEMP 98.3
[2022-05-10 07:14] LABS: MEAN CELL VOLUME 91 fl (80.0-100.0); MEAN CORPUSCULAR HGB CONC 31 g/dl (33.0-37.0); MEAN PLATELET VOLUME 10.4 fl (7.4-10.4); PLATELET COUNT 303 K/mm3 (130-400); RED BLOOD COUNT 2.86 M/mm3 (4.20-5.60); REDCELL DISTRIBUTION WIDTH-CV 13.9 % (11.5-14.5)
[2022-05-10 07:15] LABS: HEMATOCRIT 25.9 % (42.0-52.0); MEAN CORPUSCULAR HEMOGLOBIN 28 pg (27-31)
[2022-05-10 07:46] LABS: BAND 8 % (0-10); EOSINOPHIL 2 % (0-4); LYMPHOCYTE 13 % (20.0-51.0); NEUTROPHILS 75 % (42.0-75.2); PLATELET ESTIMATE NORMAL (NORMAL)
[2022-05-10 07:47] LABS: ANISOCYTOSIS 1+; HYPOCHROMIA 1+
--- NOTE | 2022-05-10 10:40 | NUR ---
PATIENT DOING WELL THIS MORNING. ASSESSMENTS COMPLETED. ABDOMINAL INCISION DRESSING CLEAN DRY INTACT. PEG SITE LOOKS WELL AND DRESSING INTACT. COLOSTOMY BAG TO RIGHT SIDE NOTED, PATIENT ABLE TO EMPTY THIS ON HIS OWN, CALLS FOR ASSIST TO HAVE CONTAINER EMPTIED INTO TOILET. PATIENT ABLE TO TRANSFER FROM BED ON HIS OWN, USES WALKER FOR AMBULATION. TAKES MEDS WHOLE WITHOUT ISSUE. GOOD APPETITE. CONTINENT OF BLADDER, USES URINAL. PATIENT IS ENCOURAGED TO DO MUCH FOR HIMSELF POSSIBLE TO PREPARE FOR DISCHARGE HOME. A&O X4. VITALS WNL.
[2022-05-10 18:00] VITALS: BP 141/68; PULSE 94; TEMP 98.1
--- NOTE | 2022-05-10 19:14 | NUR ---
PT RESTING IN BED WATCHING TV. NO COMPLAINTS AT THIS TIME. CALL LIGHT IN REACH. BED ALARM SET.
--- NOTE | 2022-05-10 19:59 | NUR ---
TX GIVEN VIA MOUTHPIECE, TOLERATED WELL. PT ON ROOM AIR BEFORE AND AFTER TX.
--- NOTE | 2022-05-11 02:44 | NUR ---
PT AWAKE. WATCHING TV. NO NEEDS AT THIS TIME.
[2022-05-11 05:52] VITALS: BP 105/77; PULSE 86; TEMP 99.1
--- NOTE | 2022-05-11 05:55 | NUR ---
PT AWAKE. NO NEEDS AT THIS TIME. QUIET UNEVENTFUL NIGHT.
--- NOTE | 2022-05-11 06:49 | NUR ---
Shift report received from ham pumper RN
--- NOTE | 2022-05-11 09:23 | NUR ---
Pt supervised as he repositioned from bed to recliner using fww. Airstrip dsg to mid abd. incision is CDI. PEG tube dsg CDI. Stoma RLQ is beefy red. Colostomy bag is intact and adhered to skin w/out issues. Pt. denies pain/discomfort. Denies nausea/abd. pain. Call light is within his reach. He denies further needs at this time
--- NOTE | 2022-05-11 10:55 | NUR ---
Airstrip dressing changed to mid abd. No drainage noted. Open areas (2) noted above and below umbilicus - pink wound beds noted to both wounds. No drainage/bleeding/redness. Calcium alginate applied over open areas. Gauze dressing changed around PEG tube sight. Small amt of mead mucous-like drainage noted on gauze. Sterile gauze dressing applied after cleansing skin around PEG site with sterile water. Pt. remains sitting in recliner. BLE elevated on foot rest. He denies additional needs. Call light is within his reach
[2022-05-11 17:39] VITALS: BP 122/48; PULSE 88; TEMP 99.4
--- NOTE | 2022-05-11 19:20 | NUR ---
TX GIVEN VIA MOUTHPIECE, TOLERATED WELL.
--- NOTE | 2022-05-11 21:00 | NUR ---
PT C/O BACK AND [place]. SEE MAR FOR PAIN MED GIVEN. PT ABLE TO MANAGE COLOSTOMY. STAFF EMPTIES CANNISTER. NO NEEDS AT THIS TIME. CALL LIGHT IN REACH. BED ALARM SET.
--- NOTE | 2022-05-12 02:14 | NUR ---
CHANGED COLOSTOMY BAG WHICH WAS LEAKING. SKIN AROUND STOMA RED EXCORIATED. CLEANED AREA WELL AND DRIED. APPLIED STOMA PASTE AND BARRIER. APPLIED BAG. PT COMPLETED MOST OF THE WORK HIMSELF.
[2022-05-12 05:06] VITALS: BP 143/75; PULSE 80
--- NOTE | 2022-05-12 05:20 | NUR ---
PT SLEEPING AT THIS TIME. NO DISTRESS. UNEVENTFUL NIGHT.
[2022-05-12 06:30] LABS: BASO # 0.1 K/mm3 (0.0-0.2); BASO % 0.6 % (0.0-2.0); EOS # 0.3 K/mm3 (0.0-0.7); EOS % 3.6 % (0.0-4.0); GRAN # 5.6 K/mm3 (1.4-6.5); GRAN % 68.8 % (42.2-75.2); LYMPH # 1.4 K/mm3 (1.2-3.4); LYMPH % 17.7 % (20.0-51.0); MEAN CELL VOLUME 89 fl (80.0-100.0); MEAN CORPUSCULAR HGB CONC 31 g/dl (33.0-37.0); MEAN PLATELET VOLUME 10.4 fl (7.4-10.4); MONO # 0.6 K/mm3 (0.1-0.6); MONO % 7.9 % (1.7-9.3); PLATELET COUNT 317 K/mm3 (130-400); RED BLOOD COUNT 2.59 M/mm3 (4.20-5.60); REDCELL DISTRIBUTION WIDTH-CV 13.8 % (11.5-14.5)
[2022-05-12 06:32] LABS: HEMATOCRIT 23.1 % (42.0-52.0); HEMOGLOBIN 7.2 g/dl (13.5-18.0); MEAN CORPUSCULAR HEMOGLOBIN 28 pg (27-31)
[2022-05-12 07:02] LABS: ALBUMIN 1.8 gm/dL (3.5-5.0); BILIRUBIN,TOTAL 0.3 mg/dL (0.2-1.2); CALCIUM 7.8 mg/dL (8.4-10.2); CREATININE, serum 0.64 mg/dL (0.72-1.25); POTASSIUM 3.5 mmol/L (3.5-4.5); TOTAL PROTEIN 6.2 gm/dL (6.2-8.1)
--- NOTE | 2022-05-12 11:44 | NUR ---
FER contacted Yumi at [facility] to follow up on referral. Yumi reports that they are able to accept the patient and that she will be getting the ostomy supplies ordered. She states that they will have a nurse visit the patient on Thursday.
[2022-05-12 17:22] VITALS: BP 146/58; PULSE 91; TEMP 98.9
--- NOTE | 2022-05-12 19:30 | NUR ---
RECEIVED CHANGE OF SHIFT REPORT FROM DAY SHIFT RN. PATIENT UP IN ROOM PER SELF WITH NO REPORTED PROBLEMS OR CONCERNS. PARENT/MOTHER AT BEDSIDE DURING REPORT. CALL LIGHT WITH IN REACH. DENIES ANY NEEDS AT THIS TIME.
--- NOTE | 2022-05-12 20:15 | NUR ---
PATIENT REQUESTED HELP WITH CHANGING COLOSTOMY BAG DUE TO LEAKAGE FROM BOTTOM RIGHT EDGE OF COLOSTOMY PHALANGE.
[2022-05-13 05:50] VITALS: BP 122/60; PULSE 88; TEMP 98.5
--- NOTE | 2022-05-13 07:07 | NUR ---
CHANGE OF SHIFT REPORT GIVEN TO DAY SHIFT RNCHRISTOPHE.
--- NOTE | 2022-05-13 07:12 | NUR ---
BEDSIDE REPORT DONE ORDER. PATIENT IN BED RESTING WITH EYES OPEN. NO DISTRESS NOTED. CALL LIGHT IN REACH
--- NOTE | 2022-05-13 09:50 | NUR ---
ASSESSMENT DONE ORDER. PATIENT ALERTX 3 WITH NO MEMORY ISSUE. PATIENT UP WALKING IN ROOM(KAE) LUNG SOUND CLEAR IN ALL LOBES. BOWEL SOUND ACTIVE IN ALL QUAD. PATIENT HAS A COLOSTOMY BAG AND PED TUBE. PED TUBE WILL BE DISCONTINUE TODAY. PATIENT EATING ABOUT 80-100% OF ALL HIS FOOD. PATIENT WILL BE GOING HOME ON Thursday05/16/2022/. CALL LIGHT IN REACH.
--- NOTE | 2022-05-13 14:00 | NUR ---
PEG TUBE WAS TAKING OUT BY DR JOHNSON TODAY. PATIENT TOLERATED WELL WITH OUT ANY ISSUE.
--- NOTE | 2022-05-13 15:30 | NUR ---
Claudia, [facility] Director notified FER that the patient's insurance has only authorized days until tomorrow. The team will have to discharge the patient tomorrow, 05/14. FER notified Yumi at [facility] . [facility] reports that they will have an RN visit the patient on . FER contacted and faxed and emailed the patient's FWW order to [facility]. [facility] delivered the FWW to the patient's room. FER met with the patient to review discharge plan. The patient is okay with discharging tomorrow. He states that it is just two days before his original discharge date. He states that he has already updated his mother. He did request that SW contact his mother to update and see if she still wants to do the patient/family meeting. FER attempted to contact the patient's mother, Haylee. FER left her a voicemail. Staff will need to provide the patient with some ostomy supplies to go home on.
--- NOTE | 2022-05-13 16:25 | NUR ---
The patient's mother, Haylee, returned FER's phone call. FER provided her with an update. Haylee is in agreement to the plan and states that she would still like to have the patient/family meeting tomorrow at 1300.
[2022-05-13 17:41] VITALS: BP 136/58; TEMP 99.6
--- NOTE | 2022-05-13 18:40 | NUR ---
RECEIVED CHANGE OF SHIFT REPORT FROM DAY SHIFT RN.
--- NOTE | 2022-05-13 20:13 | NUR ---
PATIENT DENIES ANY NEEDS OR COMPLAINTS AT THIS TIME.
--- NOTE | 2022-05-14 01:25 | NUR ---
PATIENT REPORTED COLOSTOMY "IS LEAKING" OBSERVED SOME STOOL STAINING OF LOWER EDGE OF STOMA OPENING DOWN INTO BOTTOM EDGE OF STOMA PHALANGE. APPLIANCE CHANGED PER PATIENT REQUEST WITH PATIENT ASSISTING WITH CHANGE/CLEAN UP. PATIENT VOICED FRUSTRATION AND CONCERNS REGARDING LEAKAGE PROBLEMS WHEN HE GETS HOME AND NOT BEING ABLE TO MANAGEMENT PROBLEM SOLVING AND PREVENTING WORSENING SKIN PROBLEMS AROUND STOMA. AFTER DISCUSSION, PATIENT WANTING TO TRY SLING WAFER WITH USING STOMA PASTE TO LOWER EDGE OF STOMA TO HELP WITH "DIP IN CONTOUR" TO BOTTOM EDGE OF STOMA THAT PATIENT OBSERVED. STOMA PASTE APPLIED WITH SINGLE STOMA WAFER PATIENT REQUEST (AFTER STOMA POWDER,SKIN PREP APPLIED PER D.O.) WITH NO FURTHER QUESTIONS OR CONCERNS VOICED.
[2022-05-14 06:15] VITALS: BP 140/70; PULSE 85; TEMP 98.8
[2022-05-14 06:35] LABS: BASO % 0.5 % (0.0-2.0); EOS # 0.3 K/mm3 (0.0-0.7); EOS % 3.5 % (0.0-4.0); GRAN # 5.8 K/mm3 (1.4-6.5); GRAN % 70.5 % (42.2-75.2); LYMPH # 1.3 K/mm3 (1.2-3.4); LYMPH % 15.8 % (20.0-51.0); MEAN CELL VOLUME 89 fl (80.0-100.0); MEAN CORPUSCULAR HGB CONC 31 g/dl (33.0-37.0); MEAN PLATELET VOLUME 10.2 fl (7.4-10.4); MONO # 0.8 K/mm3 (0.1-0.6); MONO % 9.1 % (1.7-9.3); PLATELET COUNT 324 K/mm3 (130-400); RED BLOOD COUNT 2.52 M/mm3 (4.20-5.60); REDCELL DISTRIBUTION WIDTH-CV 14.1 % (11.5-14.5)
[2022-05-14 06:40] LABS: HEMATOCRIT 22.3 % (42.0-52.0); MEAN CORPUSCULAR HEMOGLOBIN 28 pg (27-31)
[2022-05-14 06:51] LABS: CALCIUM 7.5 mg/dL (8.4-10.2); CREATININE, serum 0.58 mg/dL (0.72-1.25); POTASSIUM 3.4 mmol/L (3.5-4.5)
--- NOTE | 2022-05-14 07:21 | NUR ---
Change of shift report given to day shift RNRenetta.
--- NOTE | 2022-05-14 07:30 | NUR ---
BEDSIDE REPORT DONE. PATIENT RESTING IN BED WITH EYES CLOSED. CALL LIGHT IN REACH.
--- NOTE | 2022-05-14 09:13 | NUR ---
ASSESSMENT DONE ORDER. PATINET ALERT X3. NO PAIN AT THIS TIME. PATIENT WILL BE DISCHARGE TODAY. PATIENT IS MOD I IN ROOM. LUNG SOUND CLEAR IN ALL LOBES. BOWEL SOUND ACTIVE IN ALL 4 QUADS. CALLING LIGHT IN REACH.
--- NOTE | 2022-05-14 13:51 | NUR ---
[facility] CALLED REGARDING PATIENT OSTOMY CARE. SHE WANTED THE MAKING OF THE BAG AND THE SIZE. GAVE HER BAG NUMBER [id number] AND FLAGE NEW IMAGE. SHE WILL ORDER SUPPLES TODAY.
--- NOTE | 2022-05-14 14:33 | NUR ---
SW attended the patient/family meeting. The patient's mother and father were at bedside. Also present was IPR Director, Dr. Toribio, PT, and OT. IPR Director started by explaining the purpose of the meeting. Dr. Toribio then provided a clinical update. PT/OT discussed the patient's progress so far. The patient and his family are in agreement to the discharge today with home health PT/OT/SN. The team answered all questions. The patiet's mother, Haylee, reports that the patient will be staying at their house for awhile upon discharge. She provided FER with her home address. The patient informed FER that the financial counselor was not able to meet with him about disability. FER provided them with financial counselor's phone number. FER staffed with the patient's RN. His RN's plan to provide the patient with some ostomy supplies to go home with. FER contacted Myesha at [facility] and provided her with the mother's address. The patient is to discharge to his parent's home today, 05/14, with home health services for fpc/PT/OT from [facility]. SW to email orders to Yumi at [facility], once finalized. No additional needs at this time.
[2022-05-14] MEDS ORDERED: ATROVENT INHALE14 GM IH (14:37)
[2022-05-14] MEDS ORDERED: NORVASC 10MG10 MG PO (14:37)
[2022-05-14] MEDS ORDERED: K-TAB10 PO (14:38)
[2022-05-14] MEDS ORDERED: FLOVENT DI50 MCG/Act IH (14:39)
[2022-05-14] MEDS ORDERED: GAS RELIEF 8080 MG PO (14:40)
[2022-05-14] MEDS ORDERED: METAMUCIL3.4 GM/DOS PO (14:41)
[2022-05-14] MEDS ORDERED: PROTONIX 40MG T40 MG PO (14:41)
[2022-05-14] MEDS ORDERED: MYCELEX10 MG/TAB MM (14:42)
[2022-05-14] MEDS ORDERED: ROXICODONE 55 MG/TAB PO (14:43)
[2022-05-14] MEDS ORDERED: NATURAL IRON65 MG PO (14:46)
--- NOTE | 2022-05-14 15:26 | NUR ---
DISCHARGE PATIENT TODAY AT 323PM. ALL PAPERWORK WAS INSTRUCTED AND EDUCATED ON NEW MEDICATION AND UPCOMING APPOINTMENT. PATIENT UNDERSTOOD ALL INSTRUCTION. EDUCATED ON COLOSTOMY BAG AND WHAT TO DO WHEN IT LEAKS. EXPLAIN THAT HOME HEALTH CALL TO GET BAG SIZE. EXPLAIN THAT THEY WILL BE CALLING HIM TO SET UP AN APPOINTMENT. PATIENT UNDERSTOOD. TOOK PATIENT IN WHEELCHAIR TO ER ENTRY. PATIENT TOLERATED GETTING UP FROM CHAIR INTO THE VAN.
--- NOTE | 2022-05-15 14:56 | NUR ---
Discharge QIM scores were reviewed by the team. Code of 6 chosen for toilet hygiene was determined by team discussion to be the most usual performance for this patient during the discharge assessment period. Code of 6 chosen for sit to stand was determined by team discussion to be the most usual performance for this patient during the discharge assessment period. Code of 6 chosen for chair/bed to chair transfer was determined by team discussion to be the most usual performance for this patient during the discharge assessment period. Code of 6 chosen for walk 10 feet was determined by team discussion to be the most usual performance for this patient during the discharge assessment period.
== END 2022-05-14 15:23 | disposition home health service (06) | DRG 91 ==
PROVIDERS: Family Medicine; Internal Medicine; Internal Medicine Gastroenterology; Physician Assistant; ADMIT Physical Medicine & Rehabilitation Sports Medicine
PROC: 0DB68ZX Excision of Stomach, Via Natural or Artificial Opening Endoscopic, Diagnostic (ICD-10-PCS; 2022-04-30)
PROC: 0DB58ZX Excision of Esophagus, Via Natural or Artificial Opening Endoscopic, Diagnostic (ICD-10-PCS; 2022-04-30)
PROC: 0DB98ZX Excision of Duodenum, Via Natural or Artificial Opening Endoscopic, Diagnostic (ICD-10-PCS; principal; 2022-04-30 09:00)
DX: G72.81 Critical illness myopathy (principal); J96.01 Acute respiratory failure with hypoxia; N17.0 Acute kidney failure with tubular necrosis; E87.1 Hypo-osmolality and hyponatremia; Z68.41 Body mass index [BMI] 40.0-44.9, adult; T81.49XA Infection following a procedure, other surgical site, initial encounter; B37.81 Candidal esophagitis; K70.30 Alcoholic cirrhosis of liver without ascites; B96.5 Pseudomonas (aeruginosa) (mallei) (pseudomallei) as the cause of diseases classified elsewhere; R26.89 Other abnormalities of gait and mobility; R13.10 Dysphagia, unspecified; R53.81 Other malaise; G89.29 Other chronic pain; L71.0 Perioral dermatitis; J45.909 Unspecified asthma, uncomplicated; M54.50 Low back pain, unspecified; Z93.3 Colostomy status; Z93.1 Gastrostomy status; D50.9 Iron deficiency anemia, unspecified; I10 Essential (primary) hypertension; E83.42 Hypomagnesemia; E87.6 Hypokalemia; E66.01 Morbid (severe) obesity due to excess calories; F17.220 Nicotine dependence, chewing tobacco, uncomplicated; K70.9 Alcoholic liver disease, unspecified; F10.10 Alcohol abuse, uncomplicated; G62.9 Polyneuropathy, unspecified; Z60.2 Problems related to living alone; Z79.899 Other long term (current) drug therapy; Z73.6 Limitation of activities due to disability; Y92.230 Patient room in hospital as the place of occurrence of the external cause; K29.70 Gastritis, unspecified, without bleeding
CPT/HCPCS: 99233-AI; A9284; J1644; J2543; J2704; J7030; J7120; P9016